=== PATIENT | male | born 1965 | race African-American/Black ===

== ENCOUNTER 2016-09-23 11:49 | Emergency (ER) | payer BC ==
[~2016-09-23] VITALS: Ht 175.3 cm; Wt 115.9 kg
[~2016-09-23 11:49] MED LIST: 00186-0370-20 IH; AMOXICILLIN 50500 MG PO; ANXIETY MED; APRESOLINE 25MG25 MG PO; ATARAX 25MG25 MG/TAB PO; BACTRIM DS 8001 TAB PO; BLOOD PRESSURE PILL; BP MED; BP med; BUSPAR5 MG; CELEXA10 MG PO; CEPHALEXIN500 M1 PO; CIPRO 250MG TA250 MG PO; CLEOCIN HCL300 MG PO; COMBIRESP IH; DESYREL 50MG50 MG PO; DOXYCYCLINE 10100 MG PO; EPI EZ PEN1 MG/ML IM; FLEXERIL 1010 MG/TAB PO; FLOMAX 0.40.4 MG/CAP PO; HCTZ 25MG TAB25 MG PO; HCTZ 25MG25 MG PO; KENALOG0.51 TP; LAMISIL AT1% TP; LAMISIL1% TP; LEVAQUIN 5500 MG/TA1 PO; LORTAB 5/500 501 TAB PO; LOTRISONE CREAM15 GM TP; MEDROL 4MG DOSPA4 MG PO; MOTRIN 800800 MG/TAB PO; NAPROSYN500 MG PO; NO HOME MEDICATIONS; NORCO 325 MG-51 TAB PO; NORCO 325 MG-7.1 TAB PO; PEN-VEE K500 MG PO; PENICILLIN VK250 MG PO; PENICILLIN250 MG PO; PERCOCET 325 MG1 TA2 PO; PHENERGAN W/CO120 M1 PO; PHENERGAN W/CO120 ML PO; PREDNISONE10 MG PO; PREDNISONE20 MG PO; PROAIR HFA0.09 MG/AC IH; PROVENTIL0.09 MG/A1 IH; PYRIDIUM200 M1 PO; SEPTRA DS 8001 TAB PO; SOME BP MED; TESSALON PERLE200 MG PO; TRIAMCINOLONE A15 G1 TP; TRIAMCINOLONE0.1% TOP; TRIAMCINOLONE0.1% TP; TRIAMCINOLONE0.5% TOP; TUSS PO; ULTRAM 50MG TAB50 MG PO; ULTRAM50 MG PO; UNKNOWN BP MED; VENTOLIN0.09 MG IH; VICODIN 5/5001 UDTAB PO; ZITHROMAX 250M250 MG PO; ZITHROMAX Z PA250 MG PO; ZITHROMAX250 M1 PO; ZOFRAN 4MG T4 MG/TAB PO; ZOVIRAX800 MG PO; [UNRECOGNIZED DRUG - REMARK]
[2016-09-23 11:56] VITALS: BP 140/80; PULSE 93; TEMP 98.8
[2016-09-23] MEDS ORDERED: NORCO 325 MG-51 TAB PO (12:32)
[2016-09-23] MEDS ORDERED: FLEXERIL 1010 MG/TAB PO (12:32)
== END 2016-09-23 12:39 | disposition home or self-care (01) ==
LOC: COL.ER 11:49
DX: M62.838 Other muscle spasm (principal); R10.12 Left upper quadrant pain; X50.0XXA Overexertion from strenuous movement or load, initial encounter; I10 Essential (primary) hypertension; F17.210 Nicotine dependence, cigarettes, uncomplicated

== ENCOUNTER 2016-10-23 09:23 | Emergency (ER) | payer BC ==
[~2016-10-23] VITALS: Ht 175.3 cm; Wt 118.2 kg
[2016-10-23 10:25] LABS: INFLUENZA B NEGATIVE
[2016-10-23] MEDS ORDERED: LEVAQUIN 750MG750 M1 PO (12:58)
[2016-10-23] MEDS ORDERED: NORCO 325 MG-51 TAB PO (12:58)
[2016-10-23 13:31] VITALS: BP 137/97; PULSE 80; TEMP 97.5
== END 2016-10-23 13:35 | disposition home or self-care (01) ==
LOC: COL.ER 09:23
PROVIDERS: Emergency Medicine
DX: J44.0 Chronic obstructive pulmonary disease with (acute) lower respiratory infection (principal); J20.9 Acute bronchitis, unspecified; J44.1 Chronic obstructive pulmonary disease with (acute) exacerbation
CPT/HCPCS: J1170; J1885; J7512; J8540

== ENCOUNTER 2016-10-25 16:10 | Emergency (ER) | payer BC ==
[~2016-10-25] VITALS: Ht 175.3 cm; Wt 113.6 kg
[~2016-10-25 16:10] MED LIST changes: +LEVAQUIN 750MG750 M1 PO
[2016-10-25 16:18] VITALS: TEMP 98.5
[2016-10-25 17:19] LABS: BASO % 0.4 % (0.0-2.0); EOS % 0.6 % (0-4.0); GRAN # 2.5 (1.4-6.5); HEMATOCRIT 40.3 % (42.0-52.0); HEMOGLOBIN 12.6 g/dl (13.5-18.0); LYMPH # 1.5 (1.2-3.4); LYMPH % 31.5 % (20.0-51.0); MEAN CELL VOLUME 87 fl (80.0-100.0); MEAN CORPUSCULAR HEMOGLOBIN 27 pg (27.0-31.0); MEAN CORPUSCULAR HGB CONC 31 g/dl (33.0-37.0); MEAN PLATELET VOLUME 10.4 fl (7.4-10.4); MONO # 0.6 (0.1-0.6); MONO % 13.3 % (1.7-9.3); PLATELET COUNT 301 K/mm3 (130-400); RED BLOOD COUNT 4.61 M/mm3 (4.20-5.60); REDCELL DISTRIBUTION WIDTH-CV 14.1 % (11.5-14.5); WHITE BLOOD COUNT 4.7 K/mm3 (4.8-10.8)
[2016-10-25 17:27] LABS: ADJUSTED CALCIUM 8.7 mg/dL (8.4-10.2); ALBUMIN 3.8 gm/dL (3.5-5.0); BILIRUBIN,TOTAL 0.5 mg/dL (0.0-1.0); CALCIUM 8.5 mg/dL (8.4-10.2); CREATININE, serum 0.92 mg/dL (0.66-1.25); POTASSIUM 3.6 mmol/L (3.4-5.0); TOTAL PROTEIN 7.1 gm/dL (6.4-8.2)
[2016-10-25 17:46] LABS: INFLUENZA B NEGATIVE
[2016-10-25] MEDS ORDERED: PREDNISONE20 MG PO (18:03)
[2016-10-25] MEDS ORDERED: NORCO 325 MG-51 TAB PO (18:03)
[2016-10-25] MEDS ORDERED: LEVAQUIN 750MG750 M1 PO (18:03)
[2016-10-25 18:06] VITALS: BP 121/81; PULSE 90
== END 2016-10-25 18:18 | disposition home or self-care (01) ==
LOC: COL.ER 16:10
PROVIDERS: Family Medicine
DX: J44.0 Chronic obstructive pulmonary disease with (acute) lower respiratory infection (principal); J20.9 Acute bronchitis, unspecified; Z87.891 Personal history of nicotine dependence
CPT/HCPCS: J1100

== ENCOUNTER 2016-12-27 15:44 | Emergency (ER) | payer BC ==
[~2016-12-27] VITALS: Ht 175.3 cm; Wt 113.6 kg
[2016-12-27 15:48] VITALS: PULSE 94; TEMP 98
[2016-12-27] MEDS ORDERED: MEDROL 4MG DOSPA4 MG PO (17:25)
[2016-12-27] MEDS ORDERED: LEVAQUIN 750MG750 M1 PO (17:25)
[2016-12-27 17:46] VITALS: BP 135/86
== END 2016-12-27 18:20 | disposition home or self-care (01) ==
LOC: COL.ER 15:44
DX: J44.1 Chronic obstructive pulmonary disease with (acute) exacerbation (principal); F17.210 Nicotine dependence, cigarettes, uncomplicated; R91.8 Other nonspecific abnormal finding of lung field
CPT/HCPCS: J1885; J7512

== ENCOUNTER 2017-02-06 22:36 | Emergency (ER) | payer BC ==
[~2017-02-06] VITALS: Ht 175.3 cm; Wt 118.2 kg
[2017-02-06 22:43] VITALS: BP 138/75; TEMP 99
[2017-02-06] MEDS ORDERED: TRIAMCINOLONE AC0.13 TOP (23:11)
[2017-02-06 23:28] VITALS: PULSE 98
== END 2017-02-06 23:30 | disposition home or self-care (01) ==
LOC: COL.ER 22:36
DX: R21 Rash and other nonspecific skin eruption (principal); I10 Essential (primary) hypertension; J44.9 Chronic obstructive pulmonary disease, unspecified; F17.210 Nicotine dependence, cigarettes, uncomplicated; Z98.890 Other specified postprocedural states

== ENCOUNTER 2017-02-13 07:27 | Inpatient (IN) | payer BC ==
[~2017-02-13] VITALS: Ht 175.3 cm; Wt 114.8 kg
[~2017-02-13 07:27] MED LIST changes: +TRIAMCINOLONE AC0.13 TOP
[2017-02-13 08:35] LABS: BASO % 0.6 % (0.0-2.0); EOS # 0.2 (0.0-0.7); GRAN # 3.8 (1.4-6.5); GRAN % 58.9 % (42.2-75.2); HEMATOCRIT 41.5 % (42.0-52.0); HEMOGLOBIN 13.2 g/dl (13.5-18.0); LYMPH # 1.8 (1.2-3.4); LYMPH % 27.9 % (20.0-51.0); MEAN CELL VOLUME 86 fl (80.0-100.0); MEAN CORPUSCULAR HEMOGLOBIN 27 pg (27.0-31.0); MEAN CORPUSCULAR HGB CONC 32 g/dl (33.0-37.0); MEAN PLATELET VOLUME 9.6 fl (7.4-10.4); MONO # 0.6 (0.1-0.6); MONO % 9.4 % (1.7-9.3); PLATELET COUNT 305 K/mm3 (130-400); RED BLOOD COUNT 4.81 M/mm3 (4.20-5.60); REDCELL DISTRIBUTION WIDTH-CV 14.2 % (11.5-14.5); WHITE BLOOD COUNT 6.4 K/mm3 (4.8-10.8)
[2017-02-13 08:38] LABS: INR 1.1 (0.8-3.0); PROTHROMBIN TIME 12.1 SECONDS (9.7-12.8)
[2017-02-13 08:57] LABS: ADJUSTED CALCIUM 8.6 mg/dL (8.4-10.2); ALBUMIN 3.8 gm/dL (3.5-5.0); BILIRUBIN,TOTAL 0.7 mg/dL (0.0-1.0); CALCIUM 8.4 mg/dL (8.4-10.2); CREATININE, serum 0.94 mg/dL (0.66-1.25); POTASSIUM 3.6 mmol/L (3.4-5.0); TOTAL PROTEIN 6.8 gm/dL (6.4-8.2)
[2017-02-13 09:08] LABS: TROPONIN-I 0.029 ng/mL (0.000-0.034)
[2017-02-13 10:48] VITALS: BP 125/90; PULSE 94; TEMP 98.2
[2017-02-13 10:49] VITALS: BP 125/90; PULSE 94; TEMP 98.2
[2017-02-13 15:06] VITALS: BP 129/84; PULSE 97; TEMP 98.2
[2017-02-13 19:44] VITALS: BP 125/83; PULSE 85; TEMP 98.9
[2017-02-13 23:30] VITALS: BP 156/90; PULSE 88; TEMP 97.5
[2017-02-14 05:38] VITALS: BP 129/88; PULSE 90; TEMP 98.3
[2017-02-14 07:20] LABS: CALCIUM 8.3 mg/dL (8.4-10.2); CREATININE, serum 1.01 mg/dL (0.66-1.25); POTASSIUM 3.6 mmol/L (3.4-5.0)
[2017-02-14 08:18] VITALS: BP 117/81; PULSE 102; TEMP 98.6
[2017-02-14 12:13] VITALS: BP 127/83; PULSE 81; TEMP 98
[2017-02-14 17:02] VITALS: BP 116/79; PULSE 86; TEMP 99.3
[2017-02-14 20:01] VITALS: BP 113/74; PULSE 95; TEMP 98.3
[2017-02-15] VITALS (15 sets, daily range): BP systolic 106–118; BP diastolic 63–85; PULSE 67–108; TEMP 87.7–98.3
[2017-02-15 07:59] LABS: HEMATOCRIT 41.1 % (42.0-52.0); HEMOGLOBIN 13.2 g/dl (13.5-18.0); MEAN CELL VOLUME 86 fl (80.0-100.0); MEAN CORPUSCULAR HEMOGLOBIN 28 pg (27.0-31.0); MEAN CORPUSCULAR HGB CONC 32 g/dl (33.0-37.0); PLATELET COUNT 322 K/mm3 (130-400); RED BLOOD COUNT 4.78 M/mm3 (4.20-5.60); REDCELL DISTRIBUTION WIDTH-CV 14.2 % (11.5-14.5); WHITE BLOOD COUNT 4.9 K/mm3 (4.8-10.8)
[2017-02-15 08:04] LABS: INR 1.1 (0.8-3.0); PROTHROMBIN TIME 11.9 SECONDS (9.7-12.8)
[2017-02-15 08:07] LABS: PARTIAL THROMBOPLASTIN TIME 31.4 SECONDS (26.0-37.0)
[2017-02-15 08:19] LABS: CALCIUM 8.4 mg/dL (8.4-10.2); CREATININE, serum 1.06 mg/dL (0.66-1.25); POTASSIUM 4.1 mmol/L (3.4-5.0)
[2017-02-15] MEDS ORDERED: PRINIVIL5 MG PO (12:17)
[2017-02-15] MEDS ORDERED: COREG12.5 MG PO (12:17)
[2017-02-15] MEDS ORDERED: ASPIRIN 81M81 MG/TA2 PO (12:18)
[2017-02-15] MEDS ORDERED: LASIX 40MG TABL40 MG PO (12:18)
== END 2017-02-15 18:15 | disposition home or self-care (01) | DRG 287 ==
LOC: COL.ER 07:27 → MEDICAL 09:30
PROVIDERS: Family Medicine; Internal Medicine Cardiovascular Disease; Physician Assistant
PROC: B2111ZZ Fluoroscopy of Multiple Coronary Arteries using Low Osmolar Contrast (ICD-10-PCS; principal; 2017-02-15)
DX: I11.0 Hypertensive heart disease with heart failure (principal); I50.21 Acute systolic (congestive) heart failure; I42.9 Cardiomyopathy, unspecified; J45.909 Unspecified asthma, uncomplicated; F17.210 Nicotine dependence, cigarettes, uncomplicated
CPT/HCPCS: 99222-AI; 99232-AI; 99239; C1760; J1650; J1940; J2250; J3010; J7512; Q9967

== ENCOUNTER 2017-02-24 08:28 | Emergency (ER) | payer BC ==
[~2017-02-24] VITALS: Ht 175.3 cm; Wt 113.6 kg
[~2017-02-24 08:28] MED LIST changes: +ASPIRIN 81M81 MG/TA2 PO; +COREG12.5 MG PO; +LASIX 40MG TABL40 MG PO; +PRINIVIL5 MG PO
[2017-02-24 08:30] VITALS: TEMP 98.1
[2017-02-24 09:08] LABS: BASO % 0.6 % (0.0-2.0); EOS # 0.2 (0.0-0.7); EOS % 3.1 % (0-4.0); GRAN # 2.7 (1.4-6.5); GRAN % 55.9 % (42.2-75.2); HEMATOCRIT 42.9 % (42.0-52.0); HEMOGLOBIN 13.7 g/dl (13.5-18.0); LYMPH # 1.3 (1.2-3.4); LYMPH % 27.2 % (20.0-51.0); MEAN CELL VOLUME 86 fl (80.0-100.0); MEAN CORPUSCULAR HEMOGLOBIN 27 pg (27.0-31.0); MEAN CORPUSCULAR HGB CONC 32 g/dl (33.0-37.0); MEAN PLATELET VOLUME 9.8 fl (7.4-10.4); MONO # 0.6 (0.1-0.6); PLATELET COUNT 322 K/mm3 (130-400); REDCELL DISTRIBUTION WIDTH-CV 14.1 % (11.5-14.5); WHITE BLOOD COUNT 4.9 K/mm3 (4.8-10.8)
[2017-02-24 09:22] LABS: ADJUSTED CALCIUM 8.6 mg/dL (8.4-10.2); BILIRUBIN,TOTAL 0.8 mg/dL (0.0-1.0); C-REACTIVE PROTEIN 1.1 mg/dL (0.0-0.9); CALCIUM 8.6 mg/dL (8.4-10.2); CREATININE, serum 1.06 mg/dL (0.66-1.25); POTASSIUM 3.5 mmol/L (3.4-5.0)
[2017-02-24 09:30] LABS: TROPONIN-I 0.021 ng/mL (0.000-0.034)
[2017-02-24 10:40] LABS: PH 6 (5-8); SQUAMOUS EPITHELIAL 0-2 /hpf; URINE APPEARANCE Clear; URINE BACTERIA None Seen /hpf; URINE BILIRUBIN Negative (NEGATIVE); URINE BLOOD 1+ (NEGATIVE); URINE COLOR Straw; URINE GLUCOSE Negative (NEGATIVE); URINE KETONE Negative (NEGATIVE); URINE RBC 0-2 /hpf; URINE UROBILINOGEN Negative (NEGATIVE); URINE WBC 0-2 /hpf
[2017-02-24 11:06] VITALS: BP 112/82; PULSE 75
== END 2017-02-24 11:12 | disposition home or self-care (01) ==
LOC: COL.ER 08:28
PROVIDERS: Physician Assistant
DX: I11.0 Hypertensive heart disease with heart failure (principal); I50.9 Heart failure, unspecified; R07.9 Chest pain, unspecified; J45.909 Unspecified asthma, uncomplicated; J44.9 Chronic obstructive pulmonary disease, unspecified; Z86.14 Personal history of Methicillin resistant Staphylococcus aureus infection; I42.9 Cardiomyopathy, unspecified; F17.210 Nicotine dependence, cigarettes, uncomplicated
CPT/HCPCS: J1940

== ENCOUNTER 2017-03-05 09:12 | Emergency (ER) | payer BC ==
[~2017-03-05] VITALS: Ht 175.3 cm; Wt 113.6 kg
[2017-03-05 09:14] VITALS: TEMP 98.2
[2017-03-05] MEDS ORDERED: LASIX 40MG TABL40 MG PO (09:24)
[2017-03-05] MEDS ORDERED: COREG12.5 MG PO (09:25)
[2017-03-05] MEDS ORDERED: PRINIVIL5 MG PO (09:26)
[2017-03-05] MEDS ORDERED: LASIX 80MG TABL80 MG PO (09:27)
[2017-03-05 10:04] LABS: CALCIUM 8.6 mg/dL (8.4-10.2); CREATININE, serum 1.07 mg/dL (0.66-1.25); POTASSIUM 4.1 mmol/L (3.4-5.0)
[2017-03-05 10:16] VITALS: BP 129/89; PULSE 81
[2017-03-05 10:16] LABS: TROPONIN-I 0.016 ng/mL (0.000-0.034)
== END 2017-03-05 10:35 | disposition home or self-care (01) ==
LOC: COL.ER 09:12
PROVIDERS: Emergency Medicine
DX: I11.0 Hypertensive heart disease with heart failure (principal); I50.20 Unspecified systolic (congestive) heart failure; F17.210 Nicotine dependence, cigarettes, uncomplicated; T50.1X6A Underdosing of loop [high-ceiling] diuretics, initial encounter; Z91.138 Patient's unintentional underdosing of medication regimen for other reason
CPT/HCPCS: J1940

== ENCOUNTER 2017-03-12 09:35 | Emergency (ER) | payer BC ==
[~2017-03-12] VITALS: Ht 175.3 cm; Wt 116.8 kg
[~2017-03-12 09:35] MED LIST changes: +LASIX 80MG TABL80 MG PO
[2017-03-12 09:37] VITALS: BP 123/80; PULSE 91; TEMP 98.1
[2017-03-12] MEDS ORDERED: LASIX 40MG TABL40 MG PO (10:18)
[2017-03-12] MEDS ORDERED: VENTOLIN0.09 MG IH (10:18)
== END 2017-03-12 10:30 | disposition home or self-care (01) ==
LOC: COL.ER 09:35
DX: I50.9 Heart failure, unspecified (principal); T50.1X5A Adverse effect of loop [high-ceiling] diuretics, initial encounter; J44.9 Chronic obstructive pulmonary disease, unspecified; Z95.810 Presence of automatic (implantable) cardiac defibrillator

== ENCOUNTER 2017-04-10 06:43 | Inpatient (IN) | payer BC ==
[~2017-04-10] VITALS: Ht 175.3 cm; Wt 112.7 kg
[2017-04-10] VITALS (806 sets, daily range): BP systolic 131–146; BP diastolic 84–102; PULSE 78–93; TEMP 97.1–98.7; O2SAT 89–100
[2017-04-10] MEDS ORDERED: LIPOSENE PO (06:46)
[2017-04-10 07:08] LABS: BASO % 0.5 % (0.0-2.0); EOS # 0.2 (0.0-0.7); EOS % 4.6 % (0-4.0); GRAN # 2.2 (1.4-6.5); GRAN % 53.2 % (42.2-75.2); HEMATOCRIT 41.7 % (42.0-52.0); HEMOGLOBIN 13.4 g/dl (13.5-18.0); LYMPH # 1.3 (1.2-3.4); LYMPH % 31.9 % (20.0-51.0); MEAN CELL VOLUME 86 fl (80.0-100.0); MEAN CORPUSCULAR HEMOGLOBIN 28 pg (27.0-31.0); MEAN CORPUSCULAR HGB CONC 32 g/dl (33.0-37.0); MEAN PLATELET VOLUME 10.8 fl (7.4-10.4); MONO # 0.4 (0.1-0.6); MONO % 9.6 % (1.7-9.3); PLATELET COUNT 276 K/mm3 (130-400); RED BLOOD COUNT 4.85 M/mm3 (4.20-5.60); REDCELL DISTRIBUTION WIDTH-CV 14.3 % (11.5-14.5); WHITE BLOOD COUNT 4.2 K/mm3 (4.8-10.8)
[2017-04-10 07:26] LABS: ARTERIAL BLD GAS O2 SATURATION 74.1 % (92-100); ARTERIAL BLOOD GAS BASE EXCESS 2.5 (-2-2); ARTERIAL BLOOD GAS HCO3 28.5 meq/L (22-26); ARTERIAL BLOOD GAS PHT 7.38 C (7.35-7.45); ARTERIAL BLOOD GAS pH 7.38 (7.35-7.45); OXYHEMOGLOBIN 72.8 %
[2017-04-10 07:28] LABS: ARTERIAL BLOOD GAS PO2 36.2 mmHg (80-100); ARTERIAL BLOOD GAS PO2T 36.2 (80-100); ATS? YES
[2017-04-10 07:43] LABS: ADJUSTED CALCIUM 8.5 mg/dL (8.4-10.2); ALBUMIN 3.8 gm/dL (3.5-5.0); BILIRUBIN,TOTAL 0.6 mg/dL (0.0-1.0); CALCIUM 8.3 mg/dL (8.4-10.2); CREATININE, serum 1.03 mg/dL (0.66-1.25); POTASSIUM 3.6 mmol/L (3.4-5.0); TOTAL PROTEIN 6.7 gm/dL (6.4-8.2)
[2017-04-10 07:52] LABS: PARTIAL THROMBOPLASTIN TIME 29.3 SECONDS (26.0-37.0)
[2017-04-10 07:56] LABS: PROTHROMBIN TIME 10.8 SECONDS (9.7-12.8)
[2017-04-10 07:57] LABS: TROPONIN-I 0.225 ng/mL (0.000-0.034)
[2017-04-10 12:17] LABS: ARTERIAL BLD GAS O2 SATURATION 96.6 % (92-100); ARTERIAL BLD GAS TCO2 CT 28.9; ARTERIAL BLOOD GAS BASE EXCESS 2.7 (-2-2); ARTERIAL BLOOD GAS HCO3 27.6 meq/L (22-26); ARTERIAL BLOOD GAS PHT 7.42 C (7.35-7.45); ARTERIAL BLOOD GAS PO2 83.8 mmHg (80-100); ARTERIAL BLOOD GAS PO2T 83.8 (80-100); ARTERIAL BLOOD GAS pH 7.42 (7.35-7.45); OXYHEMOGLOBIN 95.5 %
[2017-04-10 12:18] LABS: ATS? YES
[2017-04-10 12:48] LABS: PH 6 (5-8); SQUAMOUS EPITHELIAL None Seen /hpf; URINE APPEARANCE Clear; URINE BACTERIA None Seen /hpf; URINE BILIRUBIN Negative (NEGATIVE); URINE BLOOD Negative (NEGATIVE); URINE COLOR Colorless; URINE GLUCOSE Negative (NEGATIVE); URINE KETONE Negative (NEGATIVE); URINE RBC 0-2 /hpf; URINE UROBILINOGEN Negative (NEGATIVE); URINE WBC 0-2 /hpf
[2017-04-11] VITALS (624 sets, daily range): BP systolic 125–158; BP diastolic 68–105; PULSE 73–86; TEMP 97.2–98.9; O2SAT 92–100
[2017-04-11 08:30] LABS: HEMOGLOBIN 14.1 g/dl (13.5-18.0); MEAN CELL VOLUME 86 fl (80.0-100.0); MEAN CORPUSCULAR HEMOGLOBIN 27 pg (27.0-31.0); MEAN CORPUSCULAR HGB CONC 32 g/dl (33.0-37.0); MEAN PLATELET VOLUME 10.7 fl (7.4-10.4); PLATELET COUNT 309 K/mm3 (130-400); RED BLOOD COUNT 5.14 M/mm3 (4.20-5.60); REDCELL DISTRIBUTION WIDTH-CV 13.7 % (11.5-14.5); WHITE BLOOD COUNT 6.1 K/mm3 (4.8-10.8)
[2017-04-11 09:39] LABS: ADJUSTED CALCIUM 8.8 mg/dL (8.4-10.2); ALBUMIN 3.7 gm/dL (3.5-5.0); BILIRUBIN,TOTAL 0.8 mg/dL (0.0-1.0); CALCIUM 8.6 mg/dL (8.4-10.2); CREATININE, serum 1.07 mg/dL (0.66-1.25); POTASSIUM 3.5 mmol/L (3.4-5.0); TOTAL PROTEIN 6.9 gm/dL (6.4-8.2)
[2017-04-12 01:22] VITALS: BP 127/89; PULSE 81; TEMP 98.8
[2017-04-12 05:35] VITALS: BP 124/85; PULSE 71; TEMP 98.5
[2017-04-12 07:09] LABS: CALCIUM 8.8 mg/dL (8.4-10.2); CREATININE, serum 1.14 mg/dL (0.66-1.25); MAGNESIUM 2.1 mg/dL (1.6-2.3); POTASSIUM 3.4 mmol/L (3.4-5.0)
[2017-04-12 07:20] LABS: TROPONIN-I 0.371 ng/mL (0.000-0.034)
[2017-04-12 08:31] VITALS: BP 121/80; PULSE 88; TEMP 98
[2017-04-12 11:19] VITALS: BP 130/87; PULSE 66; TEMP 98.4
[2017-04-12 16:07] VITALS: BP 143/89; PULSE 75; TEMP 98.5
[2017-04-12 21:14] VITALS: BP 144/85; PULSE 77; TEMP 98.6
[2017-04-13 00:47] VITALS: BP 122/68; PULSE 80; TEMP 98.2
[2017-04-13 04:51] VITALS: BP 126/62; PULSE 93; TEMP 98.1
[2017-04-13 06:55] LABS: CREATININE, serum 1.16 mg/dL (0.66-1.25); MAGNESIUM 2.2 mg/dL (1.6-2.3); POTASSIUM 3.6 mmol/L (3.4-5.0)
[2017-04-13 07:44] VITALS: BP 131/81; PULSE 80; TEMP 98.3
[2017-04-13] MEDS ORDERED: LIPITOR 80MG80 MG PO (09:37)
[2017-04-13] MEDS ORDERED: PLAVIX 75MG TAB75 MG PO (09:37)
[2017-04-13] MEDS ORDERED: ALDACTONE50 MG PO (09:38)
[2017-04-13] MEDS ORDERED: ASPI325T6 PO (09:38)
[2017-04-13] MEDS ORDERED: ZESTRIL 10MG10 MG PO (09:38)
[2017-04-13] MEDS ORDERED: K-DUR20 MEQ PO (10:37)
== END 2017-04-13 16:30 | disposition home or self-care (01) | DRG 281 ==
LOC: COL.ER 06:43 → ICU 09:07 → MEDICAL 09:07
PROVIDERS: Emergency Medicine; Internal Medicine; Physician Assistant
DX: I50.21 Acute systolic (congestive) heart failure (principal); I21.4 Non-ST elevation (NSTEMI) myocardial infarction; I42.9 Cardiomyopathy, unspecified; F17.210 Nicotine dependence, cigarettes, uncomplicated; Z91.14 Patient's other noncompliance with medication regimen
CPT/HCPCS: 99223-AI; 99232-AI; 99239; J1940; J2270; J7030; Q9967

== ENCOUNTER 2017-04-15 22:28 | Emergency (ER) | payer BC ==
[~2017-04-15] VITALS: Ht 175.3 cm; Wt 115.9 kg
[~2017-04-15 22:28] MED LIST changes: +ALDACTONE50 MG PO; +ASPI325T6 PO; +K-DUR20 MEQ PO; +LIPITOR 80MG80 MG PO; +LIPOSENE PO; +PLAVIX 75MG TAB75 MG PO; +ZESTRIL 10MG10 MG PO
[2017-04-15 22:30] VITALS: BP 134/83; TEMP 98.5
[2017-04-15 23:24] VITALS: PULSE 79
== END 2017-04-15 23:26 | disposition home or self-care (01) ==
LOC: COL.ER 22:28
DX: T80.89XA Other complications following infusion, transfusion and therapeutic injection, initial encounter (principal); R10.32 Left lower quadrant pain; I10 Essential (primary) hypertension; E11.9 Type 2 diabetes mellitus without complications; J45.909 Unspecified asthma, uncomplicated; I42.8 Other cardiomyopathies; E66.9 Obesity, unspecified; Z68.37 Body mass index [BMI] 37.0-37.9, adult; Z79.82 Long term (current) use of aspirin; Z98.890 Other specified postprocedural states; Z79.02 Long term (current) use of antithrombotics/antiplatelets; Z87.891 Personal history of nicotine dependence

== ENCOUNTER 2017-06-16 08:34 | Day surgery (SDC) | payer BC ==
[2017-06-16] VITALS (13 sets, daily range): BP systolic 117–167; BP diastolic 54–104; PULSE 61–96; TEMP 97.7–98.6
[~2017-06-16] VITALS: Ht 175.4 cm; Wt 117.0 kg
[2017-06-16] MEDS ORDERED: ASPI325T6 PO (09:13)
[2017-06-16 09:14] LABS: HEMOGLOBIN 12.8 g/dl (13.5-18.0); MEAN CELL VOLUME 87 fl (80.0-100.0); MEAN CORPUSCULAR HEMOGLOBIN 29 pg (27.0-31.0); MEAN CORPUSCULAR HGB CONC 33 g/dl (33.0-37.0); MEAN PLATELET VOLUME 9.6 fl (7.4-10.4); PLATELET COUNT 283 K/mm3 (130-400); RED BLOOD COUNT 4.47 M/mm3 (4.20-5.60); REDCELL DISTRIBUTION WIDTH-CV 13.9 % (11.5-14.5); WHITE BLOOD COUNT 4.8 K/mm3 (4.8-10.8)
[2017-06-16] MEDS ORDERED: LIPITOR 80MG80 MG PO (09:15)
[2017-06-16 09:20] LABS: PROTHROMBIN TIME 10.5 SECONDS (9.7-12.8)
[2017-06-16] MEDS ORDERED: COZAAR 50MG50 MG/TAB PO (09:21)
[2017-06-16] MEDS ORDERED: ENTRESTO 49 MG1 EACH PO (09:22)
[2017-06-16] MEDS ORDERED: K-DUR 10 MEQ T10 MEQ PO (09:25)
[2017-06-16 09:28] LABS: CALCIUM 8.6 mg/dL (8.4-10.2); CREATININE, serum 0.99 mg/dL (0.66-1.25)
[2017-06-17 03:29] VITALS: BP 141/83; PULSE 68; TEMP 97.8
[2017-06-17 08:28] VITALS: BP 97/75; PULSE 73; TEMP 98
== END 2017-06-17 11:45 | disposition home or self-care (01) ==
LOC: COL.CAR 08:34 → MEDICAL 13:37 → COL.CAR 06-17 11:45
PROVIDERS: Internal Medicine Interventional Cardiology
DX: I51.9 Heart disease, unspecified (principal); I42.8 Other cardiomyopathies
CPT/HCPCS: OP; C1722; C1777; C1894; J0690; J2250; J3010; J7030

== ENCOUNTER → 2017-06-28 | Outpatient (CLI) | payer BC ==
[~2017-06-28] MED LIST changes: +COZAAR 50MG50 MG/TAB PO; +ENTRESTO 49 MG1 EACH PO; +K-DUR 10 MEQ T10 MEQ PO
[2017-06-28 17:12] LABS: ADJUSTED CALCIUM 8.9 mg/dL (8.4-10.2); ALBUMIN 4.1 gm/dL (3.5-5.0); BILIRUBIN,TOTAL 0.4 mg/dL (0.0-1.0); CREATININE, serum 1.1 mg/dL (0.66-1.25); POTASSIUM 3.8 mmol/L (3.4-5.0); TOTAL PROTEIN 7.2 gm/dL (6.4-8.2)
== END ==
LOC: COL.LAB 16:02
PROVIDERS: Family Medicine
DX: E66.9 Obesity, unspecified (principal); I50.9 Heart failure, unspecified

== ENCOUNTER → 2017-07-11 | Outpatient (CLI) | payer BC | LOC: COL.RAD 13:11 | DX: R07.89 Other chest pain (principal); Z95.0 Presence of cardiac pacemaker ==

== ENCOUNTER 2017-07-31 19:31 | Emergency (ER) | payer BC ==
[~2017-07-31] VITALS: Ht 175.3 cm; Wt 112.3 kg
[2017-07-31 19:33] VITALS: TEMP 98.1
[2017-07-31] MEDS ORDERED: LASIX 40MG TABL40 MG PO (20:16)
[2017-07-31 20:32] LABS: BASO % 0.4 % (0.0-2.0); EOS # 0.5 (0.0-0.7); EOS % 5.6 % (0-4.0); GRAN # 5.7 (1.4-6.5); GRAN % 61.1 % (42.2-75.2); HEMATOCRIT 37.3 % (42.0-52.0); LYMPH % 21.1 % (20.0-51.0); MEAN CELL VOLUME 88 fl (80.0-100.0); MEAN CORPUSCULAR HEMOGLOBIN 28 pg (27.0-31.0); MEAN CORPUSCULAR HGB CONC 32 g/dl (33.0-37.0); MEAN PLATELET VOLUME 9.6 fl (7.4-10.4); MONO # 1.1 (0.1-0.6); MONO % 11.5 % (1.7-9.3); PLATELET COUNT 298 K/mm3 (130-400); RED BLOOD COUNT 4.25 M/mm3 (4.20-5.60); WHITE BLOOD COUNT 9.4 K/mm3 (4.8-10.8)
[2017-07-31 20:33] LABS: HEMOGLOBIN 11.9 g/dl (13.5-18.0)
[2017-07-31 20:42] LABS: ANION GAP 10 mmol/L (7-16); BLOOD UREA NITROGEN 18 mg/dL (9-20); CALCIUM 8.8 mg/dL (8.4-10.2); CARBON DIOXIDE 29 mmol/L (22-30); CHLORIDE 103 mmol/L (98-107); CREATININE, serum 1.07 mg/dL (0.66-1.25); GLUCOSE 103 mg/dL (74-106); POTASSIUM 3.3 mmol/L (3.4-5.0); SODIUM 141 mmol/L (137-145)
[2017-07-31 20:54] LABS: B-TYPE NATRIURETIC PEPTIDE 735 pg/mL (0-125)
[2017-07-31 20:55] LABS: TROPONIN-I < 0.012 ng/mL (0.000-0.034)
[2017-07-31 21:23] VITALS: BP 155/87; PULSE 78
== END 2017-07-31 21:45 | disposition home or self-care (01) ==
LOC: COL.ER 19:31
PROVIDERS: Physician Assistant
DX: R06.02 Shortness of breath (principal); I10 Essential (primary) hypertension; M79.601 Pain in right arm; J44.9 Chronic obstructive pulmonary disease, unspecified; I42.9 Cardiomyopathy, unspecified; E66.9 Obesity, unspecified; Z68.36 Body mass index [BMI] 36.0-36.9, adult; Z79.82 Long term (current) use of aspirin
CPT/HCPCS: J2360

== ENCOUNTER 2017-08-11 07:02 | Day surgery (SDC) | payer BC ==
[~2017-08-11] VITALS: Ht 175.3 cm; Wt 120.0 kg
[2017-08-11] VITALS (9 sets, daily range): BP systolic 108–152; BP diastolic 62–93; PULSE 70–88; TEMP 97–98.5
[2017-08-11 07:43] LABS: PROTHROMBIN TIME 12.1 SECONDS (9.7-12.8)
[2017-08-11 07:46] LABS: HEMATOCRIT 41.3 % (42.0-52.0); HEMOGLOBIN 13.2 g/dl (13.5-18.0); MEAN CELL VOLUME 88 fl (80.0-100.0); MEAN CORPUSCULAR HEMOGLOBIN 28 pg (27.0-31.0); MEAN CORPUSCULAR HGB CONC 32 g/dl (33.0-37.0); MEAN PLATELET VOLUME 9.6 fl (7.4-10.4); PLATELET COUNT 315 K/mm3 (130-400); RED BLOOD COUNT 4.69 M/mm3 (4.20-5.60); WHITE BLOOD COUNT 5.4 K/mm3 (4.8-10.8)
[2017-08-11 07:50] LABS: CALCIUM 9.1 mg/dL (8.4-10.2); CREATININE, serum 0.99 mg/dL (0.66-1.25); POTASSIUM 4.1 mmol/L (3.4-5.0)
[2017-08-12 03:15] VITALS: BP 148/79; PULSE 87; TEMP 98.2
[2017-08-12 09:35] VITALS: BP 102/80; PULSE 72; TEMP 98.8
== END 2017-08-12 13:10 | disposition home or self-care (01) ==
LOC: COL.CAR 07:02 → SURG 11:15 → COL.CAR 08-12 13:10
PROVIDERS: Internal Medicine Interventional Cardiology
DX: R00.1 Bradycardia, unspecified (principal); I47.2 Ventricular tachycardia; I42.9 Cardiomyopathy, unspecified
CPT/HCPCS: OP; C1769; C1894; J0690; J2250; J3010; J7030

== ENCOUNTER 2017-08-14 11:01 | Emergency (ER) | payer BC ==
[~2017-08-14] VITALS: Ht 175.3 cm; Wt 113.6 kg
[2017-08-14 11:04] VITALS: BP 125/74; TEMP 98.3
[2017-08-14] MEDS ORDERED: NORCO 325 MG-51 TAB PO (11:40)
[2017-08-14 12:16] VITALS: PULSE 80
== END 2017-08-14 12:17 | disposition home or self-care (01) ==
LOC: COL.ER 11:01
DX: G89.18 Other acute postprocedural pain (principal); R07.89 Other chest pain; I10 Essential (primary) hypertension; I42.9 Cardiomyopathy, unspecified; J44.9 Chronic obstructive pulmonary disease, unspecified; Z87.891 Personal history of nicotine dependence; Z79.82 Long term (current) use of aspirin; Z95.0 Presence of cardiac pacemaker

== ENCOUNTER → 2017-08-22 | Outpatient (CLI) | payer BC ==
[2017-08-22 16:45] LABS: CALCIUM 8.5 mg/dL (8.4-10.2); CREATININE, serum 1.02 mg/dL (0.66-1.25); POTASSIUM 3.8 mmol/L (3.4-5.0)
== END ==
LOC: COL.LAB 14:01
PROVIDERS: Family Medicine
DX: I50.9 Heart failure, unspecified (principal)

== ENCOUNTER 2017-11-17 10:23 | Emergency (ER) | payer SELFPAY ==
[~2017-11-17] VITALS: Ht 175.3 cm; Wt 118.2 kg
[2017-11-17 10:26] VITALS: BP 154/86; TEMP 98.2
[2017-11-17] MEDS ORDERED: ZITHROMAX Z PA250 MG PO (11:40)
[2017-11-17] MEDS ORDERED: PREDNISONE20 MG PO (11:40)
[2017-11-17] MEDS ORDERED: PROAIR HFA0.09 MG/AC IH (11:43)
[2017-11-17 12:23] VITALS: PULSE 86
== END 2017-11-17 12:24 | disposition home or self-care (01) ==
LOC: COL.ER 10:23
DX: J44.1 Chronic obstructive pulmonary disease with (acute) exacerbation (principal); I10 Essential (primary) hypertension; I42.9 Cardiomyopathy, unspecified; E78.5 Hyperlipidemia, unspecified; F17.210 Nicotine dependence, cigarettes, uncomplicated; Z79.82 Long term (current) use of aspirin
CPT/HCPCS: J7512

== ENCOUNTER 2017-11-19 00:28 | Emergency (ER) | payer SELFPAY ==
[~2017-11-19] VITALS: Ht 175.3 cm; Wt 117.7 kg
[2017-11-19 00:29] VITALS: BP 143/77; TEMP 98.8
[2017-11-19 03:20] VITALS: PULSE 77
== END 2017-11-19 03:21 | disposition home or self-care (01) ==
LOC: COL.ER 00:28
DX: J20.9 Acute bronchitis, unspecified (principal); I50.9 Heart failure, unspecified; I25.10 Atherosclerotic heart disease of native coronary artery without angina pectoris; J44.9 Chronic obstructive pulmonary disease, unspecified; Z95.810 Presence of automatic (implantable) cardiac defibrillator; Z79.82 Long term (current) use of aspirin; Z79.52 Long term (current) use of systemic steroids
CPT/HCPCS: J8540

== ENCOUNTER 2017-11-28 23:38 | Emergency (ER) | payer SELFPAY ==
[~2017-11-28] VITALS: Ht 175.3 cm; Wt 113.6 kg
[2017-11-28 23:42] VITALS: TEMP 98.6
[2017-11-29] MEDS ORDERED: PEN-VEE K500 MG PO (00:17)
[2017-11-29 00:25] VITALS: BP 147/89; PULSE 78
== END 2017-11-29 00:26 | disposition home or self-care (01) ==
LOC: COL.ER 23:38
DX: K02.9 Dental caries, unspecified (principal); F17.200 Nicotine dependence, unspecified, uncomplicated; Z79.82 Long term (current) use of aspirin; Z79.52 Long term (current) use of systemic steroids

== ENCOUNTER → 2017-11-29 | Outpatient (CLI) | payer OTHER | LOC: COL.PUL 09:58 | DX: Z02.71 Encounter for disability determination (principal) ==

== ENCOUNTER 2017-12-12 16:31 | Emergency (ER) | payer SELFPAY ==
[~2017-12-12] VITALS: Ht 175.3 cm; Wt 120.5 kg
[2017-12-12 16:45] VITALS: BP 146/83; TEMP 98.5
[2017-12-12 17:29] LABS: BASO % 0.6 % (0.0-2.0); EOS # 0.7 (0.0-0.7); EOS % 10.9 % (0-4.0); GRAN # 3.2 (1.4-6.5); GRAN % 46.5 % (42.2-75.2); HEMATOCRIT 42.4 % (42.0-52.0); HEMOGLOBIN 13.4 g/dl (13.5-18.0); LYMPH # 2.1 (1.2-3.4); LYMPH % 30.7 % (20.0-51.0); MEAN CELL VOLUME 87 fl (80.0-100.0); MEAN CORPUSCULAR HEMOGLOBIN 27 pg (27.0-31.0); MEAN CORPUSCULAR HGB CONC 32 g/dl (33.0-37.0); MEAN PLATELET VOLUME 9.2 fl (7.4-10.4); MONO # 0.8 (0.1-0.6); PLATELET COUNT 313 K/mm3 (130-400)
[2017-12-12 17:44] LABS: ALANINE AMINOTRANSFERASE 37 U/L (21-72); ALBUMIN 3.9 gm/dL (3.5-5.0); ALKALINE PHOSPHATASE 92 U/L (50-136); ANION GAP 11 mmol/L (7-16); AST,SGOT 26 U/L (15-37); BILIRUBIN,TOTAL 0.2 mg/dL (0.0-1.0); BLOOD UREA NITROGEN 16 mg/dL (9-20); C-REACTIVE PROTEIN 2.5 mg/dL (0.0-0.9); CALCIUM 8.9 mg/dL (8.4-10.2); CARBON DIOXIDE 29 mmol/L (22-30); CHLORIDE 101 mmol/L (98-107); CREATININE, serum 1.09 mg/dL (0.66-1.25); GLUCOSE 117 mg/dL (74-106); POTASSIUM 4.3 mmol/L (3.4-5.0); SODIUM 142 mmol/L (137-145)
[2017-12-12 17:57] LABS: TROPONIN-I < 0.012 ng/mL (0.000-0.034)
[2017-12-12] MEDS ORDERED: PREDNISONE20 MG PO (18:04)
[2017-12-12] MEDS ORDERED: ZITHROMAX 250M250 MG PO (18:04)
[2017-12-12 18:31] VITALS: PULSE 74
== END 2017-12-12 18:30 | disposition home or self-care (01) ==
LOC: COL.ER 16:31
PROVIDERS: Emergency Medicine
DX: J44.1 Chronic obstructive pulmonary disease with (acute) exacerbation (principal); J20.9 Acute bronchitis, unspecified; I10 Essential (primary) hypertension; I42.8 Other cardiomyopathies; E78.00 Pure hypercholesterolemia, unspecified; Z87.891 Personal history of nicotine dependence; Z79.52 Long term (current) use of systemic steroids; Z79.82 Long term (current) use of aspirin
CPT/HCPCS: J7512

== ENCOUNTER 2017-12-29 03:42 | Emergency (ER) | payer SELFPAY ==
[~2017-12-29] VITALS: Ht 175.3 cm; Wt 113.6 kg
[2017-12-29 03:47] VITALS: BP 193/112; TEMP 98.2
[2017-12-29] MEDS ORDERED: NORCO 325 MG-51 TAB PO (04:30)
[2017-12-29] MEDS ORDERED: PEN-VEE K500 MG PO (04:55)
[2017-12-29 05:15] VITALS: PULSE 95
== END 2017-12-29 05:15 | disposition home or self-care (01) ==
LOC: COL.ER 03:42
DX: K02.9 Dental caries, unspecified (principal); I11.0 Hypertensive heart disease with heart failure; I50.9 Heart failure, unspecified; E78.5 Hyperlipidemia, unspecified; J44.9 Chronic obstructive pulmonary disease, unspecified; Z95.0 Presence of cardiac pacemaker; Z87.891 Personal history of nicotine dependence

== ENCOUNTER → 2018-01-23 | Outpatient (CLI) | payer OTHER | LOC: COL.PUL 09:56 | DX: Z02.71 Encounter for disability determination (principal) ==

== ENCOUNTER 2018-02-17 18:07 | Emergency (ER) | payer SELFPAY ==
[~2018-02-17] VITALS: Ht 175.3 cm; Wt 115.9 kg
[2018-02-17 18:49] LABS: BASO % 0.6 % (0.0-2.0); EOS # 0.1 (0.0-0.7); EOS % 1.5 % (0-4.0); GRAN # 5.1 (1.4-6.5); GRAN % 69.8 % (42.2-75.2); LYMPH # 1.3 (1.2-3.4); LYMPH % 18.2 % (20.0-51.0); MEAN CELL VOLUME 88 fl (80.0-100.0); MEAN CORPUSCULAR HEMOGLOBIN 29 pg (27.0-31.0); MEAN CORPUSCULAR HGB CONC 33 g/dl (33.0-37.0); MEAN PLATELET VOLUME 9.4 fl (7.4-10.4); MONO # 0.7 (0.1-0.6); MONO % 9.5 % (1.7-9.3); PLATELET COUNT 327 K/mm3 (130-400); RED BLOOD COUNT 4.11 M/mm3 (4.20-5.60); REDCELL DISTRIBUTION WIDTH-CV 14.5 % (11.5-14.5)
[2018-02-17 18:59] LABS: ALANINE AMINOTRANSFERASE 40 U/L (21-72); ALBUMIN 3.9 gm/dL (3.5-5.0); ALCOHOL(ethanol),MEDICAL < 10 mg/dL; ALKALINE PHOSPHATASE 83 U/L (50-136); ANION GAP 15 mmol/L (7-16); AST,SGOT 47 U/L (15-37); BILIRUBIN,TOTAL 0.4 mg/dL (0.0-1.0); BLOOD UREA NITROGEN 20 mg/dL (9-20); CALCIUM 8.5 mg/dL (8.4-10.2); CARBON DIOXIDE 26 mmol/L (22-30); CHLORIDE 104 mmol/L (98-107); CREATININE, serum 1.22 mg/dL (0.66-1.25); GLUCOSE 102 mg/dL (74-106); LIPASE 57 U/L (23-300); POTASSIUM 3.2 mmol/L (3.4-5.0); SODIUM 145 mmol/L (137-145); TOTAL PROTEIN 7.9 gm/dL (6.4-8.2)
[2018-02-17 19:10] LABS: TROPONIN-I 0.085 ng/mL (0.000-0.034)
[2018-02-17 20:18] VITALS: TEMP 99.8
[2018-02-17 20:31] LABS: TRICYCLIC ANTIDEPRESS URINE NEGATIVE
[2018-02-17 22:32] VITALS: BP 141/90; PULSE 91
[2018-02-17] MEDS ORDERED: COREG12.5 MG PO ×3 (23:00→23:03)
== END 2018-02-17 23:15 | disposition home or self-care (01) ==
LOC: COL.ER 18:07 → MEDICAL 21:27 → COL.ER 21:27
PROVIDERS: Emergency Medicine
DX: T82.198A Other mechanical complication of other cardiac electronic device, initial encounter (principal); I48.91 Unspecified atrial fibrillation; E87.6 Hypokalemia; I42.9 Cardiomyopathy, unspecified; I50.9 Heart failure, unspecified
CPT/HCPCS: J1170; J7030

== ENCOUNTER → 2018-02-27 | Outpatient (CLI) | payer BC ==
[2018-02-27 14:18] LABS: ALBUMIN 3.9 gm/dL (3.5-5.0); CREATININE, serum 1.04 mg/dL (0.66-1.25); MAGNESIUM 2.3 mg/dL (1.6-2.3); PHOSPHOROUS 3.9 mg/dL (2.5-4.5); POTASSIUM 4.4 mmol/L (3.4-5.0)
== END ==
LOC: COL.LAB 11:59
PROVIDERS: Family Medicine
DX: R20.0 Anesthesia of skin (principal); R73.03 Prediabetes

== ENCOUNTER 2019-02-13 11:24 | Inpatient (IN) | payer OTHER ==
[~2019-02-13] VITALS: Ht 175.3 cm; Wt 106.0 kg
[2019-02-13] MEDS ORDERED: GLUCOPHAGE500 MG/TAB PO (11:30)
[2019-02-13 12:28] LABS: BASO % 0.5 % (0.0-2.0); EOS # 0.4 (0.0-0.7); EOS % 4.8 % (0-4.0); GRAN # 5.3 (1.4-6.5); HEMATOCRIT 43.8 % (42.0-52.0); HEMOGLOBIN 13.4 g/dl (13.5-18.0); LYMPH # 1.5 (1.2-3.4); LYMPH % 18.5 % (20.0-51.0); MEAN CELL VOLUME 89 fl (80.0-100.0); MEAN CORPUSCULAR HEMOGLOBIN 27 pg (27.0-31.0); MEAN CORPUSCULAR HGB CONC 31 g/dl (33.0-37.0); MEAN PLATELET VOLUME 9.4 fl (7.4-10.4); PLATELET COUNT 399 K/mm3 (130-400); RED BLOOD COUNT 4.92 M/mm3 (4.20-5.60); REDCELL DISTRIBUTION WIDTH-CV 13.6 % (11.5-14.5)
[2019-02-13 12:30] LABS: INR 1.1 (0.8-3.0); PROTHROMBIN TIME 12.8 SECONDS (9.7-12.8)
[2019-02-13 12:32] LABS: ALBUMIN 3.8 gm/dL (3.5-5.0); BILIRUBIN,TOTAL 0.2 mg/dL (0.0-1.0); CALCIUM 8.5 mg/dL (8.4-10.2); CREATININE, serum 1.29 (0.66-1.25); TOTAL PROTEIN 7.6 gm/dL (6.4-8.2)
[2019-02-13 12:44] LABS: TROPONIN-I 0.03 ng/mL (0.000-0.035)
[2019-02-13 13:38] LABS: ACETAMINOPHEN < 10 ug/mL (10-30); ALCOHOL(ethanol),MEDICAL < 10 mg/dL
--- NOTE | 2019-02-13 15:30 | NUR ---
Patient admitted to unit and resting comfortably. Able to answer most questions, but cannot remember specifics related to when things occured, dose of medications taking, or some of the medications he was taking. Alert but drowsy, drifts off while talking and taking in information. Arrived with amio drip infusing through LAC. Patient was unable to recall multiple items with his health history as well, known items completed.
[2019-02-13 16:00] VITALS: BP 105/69; PULSE 64; TEMP 98.2
[2019-02-13 18:29] VITALS: BP 108/89; PULSE 70; TEMP 98.2
[2019-02-13] MEDS ORDERED: ASPIRIN 32325 MG/TAB PO (19:47)
[2019-02-13 20:00] VITALS: BP 127/94; PULSE 68; TEMP 98.5
[2019-02-13 22:04] LABS: STREP SCREEN NEGATIVE
[2019-02-14] VITALS: BP 134/90; PULSE 71; TEMP 98.5
[2019-02-14 04:00] VITALS: BP 137/94; PULSE 83; TEMP 98.4
[2019-02-14 05:03] LABS: BASO % 0.2 % (0.0-2.0); GRAN # 4.2 (1.4-6.5); GRAN % 77.6 % (42.2-75.2); HEMATOCRIT 41.5 % (42.0-52.0); HEMOGLOBIN 12.9 g/dl (13.5-18.0); LYMPH % 18.3 % (20.0-51.0); MEAN CELL VOLUME 88 fl (80.0-100.0); MEAN CORPUSCULAR HEMOGLOBIN 27 pg (27.0-31.0); MEAN CORPUSCULAR HGB CONC 31 g/dl (33.0-37.0); MEAN PLATELET VOLUME 9.4 fl (7.4-10.4); MONO # 0.2 (0.1-0.6); MONO % 3.5 % (1.7-9.3); PLATELET COUNT 354 K/mm3 (130-400); REDCELL DISTRIBUTION WIDTH-CV 13.4 % (11.5-14.5)
[2019-02-14 05:31] LABS: ALBUMIN 3.8 gm/dL (3.5-5.0); BILIRUBIN,TOTAL 0.4 mg/dL (0.0-1.0); CALCIUM 8.6 mg/dL (8.4-10.2); MAGNESIUM 2.2 mg/dL (1.6-2.3); POTASSIUM 4.7 mmol/L (3.4-5.0); TOTAL PROTEIN 7.8 gm/dL (6.4-8.2)
[2019-02-14 05:59] LABS: TSH w REFLEX 0.107 uIU/mL (0.465-4.680)
--- NOTE | 2019-02-14 07:33 | NUR ---
gave report to dax carlson.
[2019-02-14 08:00] VITALS: BP 148/101; PULSE 69; TEMP 98.3
--- NOTE | 2019-02-14 08:00 | NUR ---
Pt AAOx4 resting in bed. MD Celina here at bedside-made aware of intermittant NSR/AFib over night with HR this morning fluctuating from 70's-160's. Plan for a [facility] today - consent obtained by MD Celina (no word from CV on procedure time)
[2019-02-14 12:00] VITALS: BP 167/114; PULSE 73; TEMP 97.8
--- NOTE | 2019-02-14 13:28 | NUR ---
SW met with patient to discuss discharge planning. Patient lives independently at home. Joey does not use any DME or home health services. Patient's PCP is Dr Layton and he obtains prescriptions from [facility]. Patient's insurance is not effective until Jun 11 but patient does not express any financial difficulties with obtaining medication. SW does not anticipate any discharge needs.
[2019-02-14 14:56] VITALS: BP 140/86; PULSE 89; TEMP 98.6
--- NOTE | 2019-02-14 15:15 | NUR ---
Patient arrived to the Medical floor room 309 from [facility] at [facility], he is alert/oriented, vital signs have been stable, denies pain, will continue to monitor
--- NOTE | 2019-02-14 19:40 | NUR ---
Patient resting in bed. Assessment completed. Pt c/o indigestion, had refused protonix earlier inthe shift, gave patient the protonix which has helped relieve indigestion; patient also sat up in bed. Denies pain. NO further needs at this time.
[2019-02-14 19:41] VITALS: BP 162/79; PULSE 87; TEMP 98.5
--- NOTE | 2019-02-14 20:36 | NUR ---
Patient sitting up in bed, assessment copmleted, denies pain. Given razor, soap, toothbrush, and toothpaste. Evening meds adminsitered. NO further needs at this time.
[2019-02-15 00:15] VITALS: BP 130/79; PULSE 88; TEMP 98.7
[2019-02-15 03:04] VITALS: BP 117/79; PULSE 93; TEMP 98.4
--- NOTE | 2019-02-15 05:16 | NUR ---
Pt slept most of the night, VSS, afebrile. NO needs at this time.
[2019-02-15 06:03] LABS: BASO % 0.3 % (0.0-2.0); EOS # 0.1 (0.0-0.7); EOS % 0.6 % (0-4.0); GRAN # 7.4 (1.4-6.5); GRAN % 68.8 % (42.2-75.2); HEMATOCRIT 45.1 % (42.0-52.0); HEMOGLOBIN 14.3 g/dl (13.5-18.0); LYMPH # 2.3 (1.2-3.4); LYMPH % 21.3 % (20.0-51.0); MEAN CELL VOLUME 86 fl (80.0-100.0); MEAN CORPUSCULAR HEMOGLOBIN 27 pg (27.0-31.0); MEAN CORPUSCULAR HGB CONC 32 g/dl (33.0-37.0); MEAN PLATELET VOLUME 9.7 fl (7.4-10.4); MONO # 0.9 (0.1-0.6); MONO % 8.7 % (1.7-9.3); PLATELET COUNT 417 K/mm3 (130-400); RED BLOOD COUNT 5.25 M/mm3 (4.20-5.60); REDCELL DISTRIBUTION WIDTH-CV 13.6 % (11.5-14.5)
[2019-02-15 06:16] LABS: CALCIUM 9.1 mg/dL (8.4-10.2); CREATININE, serum 0.95 (0.66-1.25); POTASSIUM 3.9 mmol/L (3.4-5.0)
--- NOTE | 2019-02-15 07:10 | NUR ---
report given to dax ozuna.
[2019-02-15 07:39] VITALS: BP 136/86; PULSE 95; TEMP 98.3
--- NOTE | 2019-02-15 09:53 | NUR ---
Pt is awake and A/Ox4, resting in bed. He denies pain at this time. Saline lock to left hand is free of complications. Pt is up in room as tolerated. States he is going home today. Denies any other needs.
--- NOTE | 2019-02-15 11:21 | NUR ---
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 No needs right now.
[2019-02-15 11:28] VITALS: BP 124/73; PULSE 81; TEMP 98.2
[2019-02-15] MEDS ORDERED: AMOXICILLIN 8751 TAB PO (12:54)
[2019-02-15] MEDS ORDERED: COUMADIN 5MG5 MG/TAB PO (12:55)
[2019-02-15] MEDS ORDERED: CORDARONE200 MG/TAB PO (12:57)
[2019-02-15] MEDS ORDERED: ALDACTONE 25MG25 M1 PO (12:58)
[2019-02-15] MEDS ORDERED: PREDNISONE10 MG PO (13:00)
[2019-02-15] MEDS ORDERED: ASPIRIN 81M81 MG/TA2 PO (13:22)
--- NOTE | 2019-02-15 13:35 | NUR ---
Financial counselor, Siomara, met with the patient and completed a Medicaid application with him. The patient is to discharge back home today, 02/15. No additional needs at this time.
--- NOTE | 2019-02-19 13:47 | NUR ---
The pharmacist, Katty, informed [facility] that the patient contacted her and told her that he is unable to afford his prescription for Cordarone. SW contacted the patient and he confirmed that he is unable to afford that med. [facility] provided a med voucher to the patient for the Cordarone. $14.30. [facility] faxed the med voucher and script to Dominick at [facility]. The patient states that he will picker machine operator the med today, 02/19.
== END 2019-02-15 14:51 | disposition home or self-care (01) | DRG 309 ==
LOC: COL.ER 11:24 → ICU 13:29 → MEDICAL 02-14 14:32
PROVIDERS: Emergency Medicine; Hospitalist; Physician Assistant; ADMIT Internal Medicine
DX: I48.91 Unspecified atrial fibrillation (principal); I50.22 Chronic systolic (congestive) heart failure; J44.1 Chronic obstructive pulmonary disease with (acute) exacerbation; I48.0 Paroxysmal atrial fibrillation; J02.9 Acute pharyngitis, unspecified; I42.9 Cardiomyopathy, unspecified; N28.9 Disorder of kidney and ureter, unspecified; E11.9 Type 2 diabetes mellitus without complications; R00.0 Tachycardia, unspecified; I11.0 Hypertensive heart disease with heart failure; E66.9 Obesity, unspecified; F17.210 Nicotine dependence, cigarettes, uncomplicated; Z68.35 Body mass index [BMI] 35.0-35.9, adult; Z95.810 Presence of automatic (implantable) cardiac defibrillator
CPT/HCPCS: 99223-AI; 99232-AI; 99239; A4216; J0282; J0696; J1644; J7030; J7060; J7512

== ENCOUNTER 2019-03-29 08:26 | Emergency (ER) | payer OTHER ==
[~2019-03-29] VITALS: Ht 175.3 cm; Wt 110.0 kg
[~2019-03-29 08:26] MED LIST changes: +ALDACTONE 25MG25 M1 PO; +AMOXICILLIN 8751 TAB PO; +ASPIRIN 32325 MG/TAB PO; +CORDARONE200 MG/TAB PO; +COUMADIN 5MG5 MG/TAB PO; +GLUCOPHAGE500 MG/TAB PO
[2019-03-29 09:07] VITALS: BP 138/82
[2019-03-29 09:58] LABS: BASO % 0.6 % (0.0-2.0); EOS # 0.3 (0.0-0.7); EOS % 6.1 % (0-4.0); GRAN # 3.1 (1.4-6.5); GRAN % 57.2 % (42.2-75.2); HEMATOCRIT 44.1 % (42.0-52.0); HEMOGLOBIN 13.9 g/dl (13.5-18.0); LYMPH # 1.5 (1.2-3.4); LYMPH % 26.7 % (20.0-51.0); MEAN CELL VOLUME 88 fl (80.0-100.0); MEAN CORPUSCULAR HEMOGLOBIN 28 pg (27.0-31.0); MEAN CORPUSCULAR HGB CONC 32 g/dl (33.0-37.0); MEAN PLATELET VOLUME 8.9 fl (7.4-10.4); MONO # 0.5 (0.1-0.6); MONO % 9.2 % (1.7-9.3); PLATELET COUNT 306 K/mm3 (130-400); RED BLOOD COUNT 4.99 M/mm3 (4.20-5.60); REDCELL DISTRIBUTION WIDTH-CV 14.8 % (11.5-14.5)
[2019-03-29 11:08] LABS: BILIRUBIN,TOTAL 0.4 mg/dL (0.0-1.0); CALCIUM 8.5 mg/dL (8.4-10.2); CREATININE, serum 1.24 (0.66-1.25); POTASSIUM 4.4 mmol/L (3.4-5.0); TOTAL PROTEIN 7.9 gm/dL (6.4-8.2)
[2019-03-29 11:53] LABS: C-REACTIVE PROTEIN 1.5 mg/dL (0.0-0.9)
[2019-03-29 12:05] VITALS: PULSE 71; TEMP 97.3
== END 2019-03-29 12:10 | disposition home or self-care (01) ==
LOC: COL.ER 08:26
PROVIDERS: Physician Assistant
DX: B35.4 Tinea corporis (principal); R19.7 Diarrhea, unspecified; Z79.01 Long term (current) use of anticoagulants; Z79.82 Long term (current) use of aspirin

== ENCOUNTER 2019-04-15 07:04 | Emergency (ER) | payer OTHER ==
[~2019-04-15] VITALS: Ht 175.3 cm; Wt 109.5 kg
[2019-04-15 07:07] VITALS: BP 208/111; TEMP 97.7
[2019-04-15] MEDS ORDERED: AMOXICILLIN 50500 MG PO (07:38)
[2019-04-15 08:20] VITALS: PULSE 83
== END 2019-04-15 08:25 | disposition home or self-care (01) ==
LOC: COL.ER 07:04
DX: S02.5XXA Fracture of tooth (traumatic), initial encounter for closed fracture (principal); I10 Essential (primary) hypertension; F17.210 Nicotine dependence, cigarettes, uncomplicated; I48.91 Unspecified atrial fibrillation; Z79.01 Long term (current) use of anticoagulants; X58.XXXA Exposure to other specified factors, initial encounter

== ENCOUNTER → 2019-04-15 | Outpatient (CLI) | payer OTHER ==
[2019-04-15 15:13] LABS: STOOL FOR OCCULT BLOOD NEGATIVE (NEGATIVE)
== END ==
LOC: COL.LAB 14:06
PROVIDERS: Physician Assistant Medical
DX: L29.0 Pruritus ani (principal)

== ENCOUNTER 2019-04-17 00:21 | Emergency (ER) | payer OTHER | END 2019-04-17 01:06 | disposition left against medical advice (07) | LOC: COL.ER 00:21 | DX: Z72.9 Problem related to lifestyle, unspecified (principal) ==

== ENCOUNTER 2019-04-17 01:30 | Emergency (ER) | payer OTHER ==
[~2019-04-17] VITALS: Ht 175.3 cm; Wt 106.8 kg
[2019-04-17 01:40] VITALS: BP 154/107; TEMP 97.8
[2019-04-17 02:47] VITALS: PULSE 96
== END 2019-04-17 02:44 | disposition left against medical advice (07) ==
LOC: COL.ER 01:30
DX: R20.2 Paresthesia of skin (principal); I50.9 Heart failure, unspecified; J44.9 Chronic obstructive pulmonary disease, unspecified; I11.0 Hypertensive heart disease with heart failure; I42.9 Cardiomyopathy, unspecified; Z79.01 Long term (current) use of anticoagulants; Z79.82 Long term (current) use of aspirin

== ENCOUNTER 2019-05-20 02:09 | Emergency (ER) | payer MEDICAID ==
[~2019-05-20] VITALS: Ht 175.3 cm; Wt 112.7 kg
[2019-05-20 02:56] LABS: ALBUMIN 4.3 gm/dL (3.5-5.0); BILIRUBIN,TOTAL 0.6 mg/dL (0.0-1.0); CALCIUM 8.7 mg/dL (8.4-10.2); CREATININE, serum 1.4 (0.66-1.25); POTASSIUM 3.3 mmol/L (3.4-5.0); TOTAL PROTEIN 7.9 gm/dL (6.4-8.2)
[2019-05-20 03:25] VITALS: BP 145/97; PULSE 89
== END 2019-05-20 03:25 | disposition home or self-care (01) ==
LOC: COL.ER 02:09
PROVIDERS: Emergency Medicine
DX: L29.9 Pruritus, unspecified (principal); I10 Essential (primary) hypertension; J44.9 Chronic obstructive pulmonary disease, unspecified; M54.9 Dorsalgia, unspecified; G89.29 Other chronic pain; F17.210 Nicotine dependence, cigarettes, uncomplicated; F12.90 Cannabis use, unspecified, uncomplicated; F14.90 Cocaine use, unspecified, uncomplicated; F15.90 Other stimulant use, unspecified, uncomplicated; Z79.01 Long term (current) use of anticoagulants; Z79.82 Long term (current) use of aspirin; Z95.0 Presence of cardiac pacemaker; Z95.5 Presence of coronary angioplasty implant and graft

== ENCOUNTER 2019-06-18 12:21 | Emergency (ER) | payer MEDICAID ==
[~2019-06-18] VITALS: Ht 175.3 cm; Wt 111.4 kg
[2019-06-18 12:24] VITALS: TEMP 98.5
[2019-06-18] MEDS ORDERED: PROAIR HFA0.09 MG/AC IH (12:40)
[2019-06-18 14:02] LABS: BASO # 0.1 (0.0-0.2); BASO % 0.7 % (0.0-2.0); EOS # 0.4 (0.0-0.7); EOS % 4.7 % (0-4.0); GRAN # 4.2 (1.4-6.5); GRAN % 55.8 % (42.2-75.2); HEMATOCRIT 45.3 % (42.0-52.0); HEMOGLOBIN 14.2 g/dl (13.5-18.0); LYMPH # 2.1 (1.2-3.4); LYMPH % 27.1 % (20.0-51.0); MEAN CELL VOLUME 90 fl (80.0-100.0); MEAN CORPUSCULAR HEMOGLOBIN 28 pg (27.0-31.0); MEAN CORPUSCULAR HGB CONC 31 g/dl (33.0-37.0); MEAN PLATELET VOLUME 9.7 fl (7.4-10.4); MONO # 0.9 (0.1-0.6); MONO % 11.4 % (1.7-9.3); PLATELET COUNT 320 K/mm3 (130-400); RED BLOOD COUNT 5.02 M/mm3 (4.20-5.60); REDCELL DISTRIBUTION WIDTH-CV 14.3 % (11.5-14.5)
[2019-06-18 14:17] LABS: ALBUMIN 4.3 gm/dL (3.5-5.0); BILIRUBIN,TOTAL 0.2 mg/dL (0.0-1.0); CALCIUM 8.7 mg/dL (8.4-10.2); CREATININE, serum 1.04 (0.66-1.25); TOTAL PROTEIN 7.9 gm/dL (6.4-8.2)
[2019-06-18] MEDS ORDERED: PREDNISONE20 MG PO (15:34)
[2019-06-18 16:16] VITALS: BP 138/107; PULSE 87
== END 2019-06-18 16:16 | disposition home or self-care (01) ==
LOC: COL.ER 12:21
PROVIDERS: Nurse Practitioner
DX: J44.1 Chronic obstructive pulmonary disease with (acute) exacerbation (principal); I10 Essential (primary) hypertension; E11.9 Type 2 diabetes mellitus without complications; Z79.84 Long term (current) use of oral hypoglycemic drugs; Z87.891 Personal history of nicotine dependence; Z88.5 Allergy status to narcotic agent; Z95.0 Presence of cardiac pacemaker; Z79.82 Long term (current) use of aspirin
CPT/HCPCS: J2930

== ENCOUNTER 2019-11-19 04:35 | Emergency (ER) | payer MEDICAID ==
[~2019-11-19] VITALS: Ht 175.3 cm; Wt 113.6 kg
[2019-11-19 04:38] VITALS: TEMP 98.4
[2019-11-19 05:18] LABS: ALKALINE PHOSPHATASE 94 U/L (50-136); ANION GAP 11 mmol/L (7-16); AST,SGOT 39 U/L (15-37); BILIRUBIN,TOTAL 0.6 mg/dL (0.0-1.0); BLOOD UREA NITROGEN 16 mg/dL (9-20); CALCIUM 8.4 mg/dL (8.4-10.2); CARBON DIOXIDE 25 mmol/L (22-30); CHLORIDE 105 mmol/L (98-107); CREATININE, serum 1.16 (0.66-1.25); GLUCOSE 122 mg/dL (74-106); MAGNESIUM 2.1 mg/dL (1.6-2.3); PHOSPHOROUS 4.8 mg/dL (2.5-4.5); POTASSIUM 3.2 mmol/L (3.4-5.0); SODIUM 141 mmol/L (137-145); TOTAL PROTEIN 7.3 gm/dL (6.4-8.2)
[2019-11-19 05:20] LABS: BASO % 0.2 % (0.0-2.0); EOS # 0.3 (0.0-0.7); EOS % 3.3 % (0-4.0); GRAN % 69.5 % (42.2-75.2); HEMATOCRIT 42.9 % (42.0-52.0); HEMOGLOBIN 13.6 g/dl (13.5-18.0); LYMPH # 1.5 (1.2-3.4); LYMPH % 15.3 % (20.0-51.0); MEAN CELL VOLUME 88 fl (80.0-100.0); MEAN CORPUSCULAR HEMOGLOBIN 28 pg (27.0-31.0); MEAN CORPUSCULAR HGB CONC 32 g/dl (33.0-37.0); MEAN PLATELET VOLUME 9.1 fl (7.4-10.4); MONO # 1.2 (0.1-0.6); MONO % 11.5 % (1.7-9.3); PLATELET COUNT 270 K/mm3 (130-400); REDCELL DISTRIBUTION WIDTH-CV 13.8 % (11.5-14.5)
[2019-11-19 05:38] LABS: ACETAMINOPHEN < 10 ug/mL (10-30); ALANINE AMINOTRANSFERASE 28 U/L (4-49); ALCOHOL(ethanol),MEDICAL < 10 mg/dL
[2019-11-19 06:16] LABS: COLLECTION METHOD CLEAN CATCH
[2019-11-19 06:22] LABS: MUCOUS Present /lpf; PH 7 (5-8); SQUAMOUS EPITHELIAL 0-2 /hpf; URINE APPEARANCE Clear; URINE BACTERIA Rare /hpf; URINE BILIRUBIN Negative (NEGATIVE); URINE BLOOD 1+ (NEGATIVE); URINE COLOR Yellow; URINE GLUCOSE Negative (NEGATIVE); URINE KETONE Negative (NEGATIVE); URINE LEUKOCYTE ESTERASE Negative (NEGATIVE); URINE NITRATE Negative (NEGATIVE); URINE PROTEIN(semi-quant) Negative (NEGATIVE); URINE UROBILINOGEN Negative (NEGATIVE)
[2019-11-19 06:35] LABS: TRICYCLIC ANTIDEPRESS URINE NEGATIVE
[2019-11-19] MEDS ORDERED: PREDNISONE20 MG PO (06:57)
[2019-11-19 07:04] VITALS: BP 137/98; PULSE 83
== END 2019-11-19 07:14 | disposition home or self-care (01) ==
LOC: COL.ER 04:35
PROVIDERS: Emergency Medicine
DX: F15.10 Other stimulant abuse, uncomplicated (principal); J44.9 Chronic obstructive pulmonary disease, unspecified; F17.210 Nicotine dependence, cigarettes, uncomplicated; I50.9 Heart failure, unspecified; Z79.52 Long term (current) use of systemic steroids; Z79.84 Long term (current) use of oral hypoglycemic drugs; Z79.82 Long term (current) use of aspirin
CPT/HCPCS: J7512

== ENCOUNTER 2020-01-05 13:26 | Emergency (ER) | payer MEDICAID ==
[~2020-01-05] VITALS: Ht 172.7 cm; Wt 113.6 kg
[2020-01-05 13:38] VITALS: TEMP 98.4
[2020-01-05] MEDS ORDERED: [UNRECOGNIZED DRUG - OTHER] PO (14:14)
[2020-01-05] MEDS ORDERED: VISTARIL50 MG PO (14:24)
[2020-01-05] MEDS ORDERED: SEPTRA DS 8001 TAB PO (14:24)
[2020-01-05 14:42] VITALS: BP 158/95; PULSE 98
== END 2020-01-05 14:45 | disposition home or self-care (01) ==
LOC: COL.ER 13:26
DX: B71.9 Cestode infection, unspecified (principal); L03.116 Cellulitis of left lower limb; L03.115 Cellulitis of right lower limb; I11.0 Hypertensive heart disease with heart failure; I50.9 Heart failure, unspecified; F17.210 Nicotine dependence, cigarettes, uncomplicated; Z95.0 Presence of cardiac pacemaker; Z79.82 Long term (current) use of aspirin; Z79.84 Long term (current) use of oral hypoglycemic drugs

== ENCOUNTER 2020-01-07 06:17 | Emergency (ER) | payer MEDICAID ==
[~2020-01-07] VITALS: Ht 172.7 cm; Wt 113.6 kg
[~2020-01-07 06:17] MED LIST changes: +VISTARIL50 MG PO; +[UNRECOGNIZED DRUG - OTHER] PO
[2020-01-07 06:39] VITALS: BP 164/88; TEMP 98.3
[2020-01-07] MEDS ORDERED: CORDARONE200 MG/TAB PO (07:36)
[2020-01-07 07:50] VITALS: PULSE 101
== END 2020-01-07 08:55 | disposition home or self-care (01) ==
LOC: COL.ER 06:17
DX: R19.7 Diarrhea, unspecified (principal); I42.8 Other cardiomyopathies; J44.9 Chronic obstructive pulmonary disease, unspecified; E11.9 Type 2 diabetes mellitus without complications; I10 Essential (primary) hypertension; Z98.890 Other specified postprocedural states; Z79.899 Other long term (current) drug therapy; Z95.810 Presence of automatic (implantable) cardiac defibrillator; Z79.82 Long term (current) use of aspirin; Z79.84 Long term (current) use of oral hypoglycemic drugs

== ENCOUNTER 2020-01-13 13:29 | Emergency (ER) | payer MEDICAID ==
[~2020-01-13] VITALS: Ht 175.3 cm; Wt 113.6 kg
[2020-01-13 13:35] VITALS: TEMP 98.4
[2020-01-13 14:27] LABS: BASO # 0.1 (0.0-0.2); BASO % 0.7 % (0.0-2.0); EOS # 0.3 (0.0-0.7); EOS % 3.9 % (0-4.0); GRAN # 4.6 (1.4-6.5); GRAN % 66.2 % (42.2-75.2); HEMATOCRIT 39.8 % (42.0-52.0); HEMOGLOBIN 12.5 g/dl (13.5-18.0); LYMPH # 1.4 (1.2-3.4); LYMPH % 19.9 % (20.0-51.0); MEAN CELL VOLUME 89 fl (80.0-100.0); MEAN CORPUSCULAR HEMOGLOBIN 28 pg (27.0-31.0); MEAN CORPUSCULAR HGB CONC 31 g/dl (33.0-37.0); MEAN PLATELET VOLUME 9.4 fl (7.4-10.4); MONO # 0.6 (0.1-0.6); MONO % 9.2 % (1.7-9.3); PLATELET COUNT 289 K/mm3 (130-400); RED BLOOD COUNT 4.48 M/mm3 (4.20-5.60); REDCELL DISTRIBUTION WIDTH-CV 13.9 % (11.5-14.5)
[2020-01-13 14:39] LABS: BILIRUBIN,TOTAL 0.2 mg/dL (0.0-1.0); C-REACTIVE PROTEIN 1.1 mg/dL (0.0-0.9); CALCIUM 8.7 mg/dL (8.4-10.2); CREATININE, serum 1.28 (0.66-1.25); POTASSIUM 4.3 mmol/L (3.4-5.0); TOTAL PROTEIN 7.3 gm/dL (6.4-8.2)
[2020-01-13 15:03] LABS: ERYTHROCYTE SEDIMENTATION RATE 9 mm/hr (0-30)
[2020-01-13] MEDS ORDERED: FIORICET 325 MG1 TA1 PO (15:20)
[2020-01-13 15:27] VITALS: BP 119/80; PULSE 72
== END 2020-01-13 15:29 | disposition home or self-care (01) ==
LOC: COL.ER 13:29
PROVIDERS: Emergency Medicine
DX: R51 Headache (principal); E11.9 Type 2 diabetes mellitus without complications; I10 Essential (primary) hypertension; F17.210 Nicotine dependence, cigarettes, uncomplicated; Z79.84 Long term (current) use of oral hypoglycemic drugs; Z79.82 Long term (current) use of aspirin
CPT/HCPCS: J1170; J2405; J7030

== ENCOUNTER 2020-01-18 16:50 | Emergency (ER) | payer MEDICAID ==
[~2020-01-18] VITALS: Ht 175.3 cm; Wt 111.4 kg
[~2020-01-18 16:50] MED LIST changes: +FIORICET 325 MG1 TA1 PO
[2020-01-18 16:58] VITALS: BP 151/72; TEMP 98.4
[2020-01-18] MEDS ORDERED: NEURONTIN300 MG/CAP PO (17:32)
[2020-01-18] MEDS ORDERED: GLUCOPHAGE500 MG/TAB PO (17:32)
[2020-01-18 17:51] VITALS: PULSE 71
== END 2020-01-18 17:41 | disposition home or self-care (01) ==
LOC: COL.ER 16:50
DX: E11.40 Type 2 diabetes mellitus with diabetic neuropathy, unspecified (principal); J44.9 Chronic obstructive pulmonary disease, unspecified; I10 Essential (primary) hypertension; Z79.82 Long term (current) use of aspirin; Z79.84 Long term (current) use of oral hypoglycemic drugs

== ENCOUNTER → 2020-05-13 | Outpatient (CLI) | payer MEDICAID ==
[~2020-05-13] MED LIST changes: +NEURONTIN300 MG/CAP PO
== END ==
LOC: ZCOL.LAB 12:23
DX: R07.89 Other chest pain (principal)

== ENCOUNTER → 2020-07-22 | Outpatient (CLI) | payer MEDICARE, MEDICAID ==
[2020-07-22 11:17] LABS: ARTERIAL BLD GAS TCO2 CT 26.1; ARTERIAL BLOOD GAS BASE EXCESS 0.8 (-2-2); ARTERIAL BLOOD GAS HCO3 24.9 meq/L (22-26); ARTERIAL BLOOD GAS PCO2 38.3 mmHg (35-45); ARTERIAL BLOOD GAS PO2 84.7 mmHg (80-100); ARTERIAL BLOOD GAS pH 7.43 (7.35-7.45)
== END ==
LOC: COL.PUL 10:46
PROVIDERS: Internal Medicine Pulmonary Disease
DX: R06.02 Shortness of breath (principal)

== ENCOUNTER 2020-11-23 21:23 | Observation (INO) | payer MEDICARE, MEDICAID ==
[~2020-11-23] VITALS: Ht 175.3 cm; Wt 122.9 kg
[2020-11-23 22:26] LABS: BASO % 0.4 % (0.0-2.0); EOS # 0.2 (0.0-0.7); EOS % 3.2 % (0-4.0); GRAN # 4.7 (1.4-6.5); GRAN % 64.9 % (42.2-75.2); HEMATOCRIT 41.7 % (42.0-52.0); HEMOGLOBIN 13.5 g/dl (13.5-18.0); LYMPH # 1.4 (1.2-3.4); LYMPH % 19.4 % (20.0-51.0); MEAN CELL VOLUME 87 fl (80.0-100.0); MEAN CORPUSCULAR HEMOGLOBIN 28 pg (27.0-31.0); MEAN CORPUSCULAR HGB CONC 32 g/dl (33.0-37.0); MEAN PLATELET VOLUME 9.5 fl (7.4-10.4); MONO # 0.9 (0.1-0.6); MONO % 11.8 % (1.7-9.3); PLATELET COUNT 288 K/mm3 (130-400); RED BLOOD COUNT 4.82 M/mm3 (4.20-5.60); REDCELL DISTRIBUTION WIDTH-CV 13.8 % (11.5-14.5)
[2020-11-23 22:39] LABS: ALANINE AMINOTRANSFERASE 32 U/L (4-49); ALBUMIN 4.1 gm/dL (3.5-5.0); ALKALINE PHOSPHATASE 97 U/L (50-136); ANION GAP 10 mmol/L (7-16); AST,SGOT 39 U/L (15-37); BILIRUBIN,TOTAL 0.2 mg/dL (0.0-1.0); BLOOD UREA NITROGEN 23 mg/dL (9-20); CALCIUM 8.1 mg/dL (8.4-10.2); CARBON DIOXIDE 24 mmol/L (22-30); CHLORIDE 105 mmol/L (98-107); CREATININE, serum 1.22 (0.66-1.25); GLUCOSE 118 mg/dL (74-106); POTASSIUM 3.7 mmol/L (3.4-5.0); SODIUM 139 mmol/L (137-145); TOTAL PROTEIN 7.4 gm/dL (6.4-8.2)
[2020-11-23 22:40] LABS: ARTERIAL BLD GAS O2 SATURATION 95.9 % (92-100); ARTERIAL BLOOD GAS BASE EXCESS -0.3 (-2-2); ARTERIAL BLOOD GAS HCO3 25.6 meq/L (22-26); ARTERIAL BLOOD GAS PCO2 46.7 mmHg (35-45); ARTERIAL BLOOD GAS PO2 77.5 mmHg (80-100); ARTERIAL BLOOD GAS pH 7.36 (7.35-7.45)
[2020-11-23 22:51] LABS: TROPONIN-I < 0.012 ng/mL (0.000-0.035)
[2020-11-23] MEDS ORDERED: PROAIR HFA0.09 MG/AC IH (23:23)
[2020-11-23] MEDS ORDERED: MEDROL 4MG DOSPA4 MG PO (23:23)
[2020-11-23] MEDS ORDERED: DOXYCYCLINE 10100 MG PO (23:23)
[2020-11-24] VITALS (7 sets, daily range): BP systolic 99–126; BP diastolic 47–79; PULSE 68–81; TEMP 97.8–98.3
--- NOTE | 2020-11-24 01:35 | NUR ---
Received patient from ED. Patient is alert and oriented. He is on O2 at 2lpm via NC. His lungs are diminished and with insp/exp wheezes. No other orders yet. Will inform Poly HICKEY that patient is already in the room.
[2020-11-24] MEDS ORDERED: COREG 25MG25 MG/TAB PO (02:11)
[2020-11-24] MEDS ORDERED: LASIX 40MG TABL40 MG PO (02:11)
--- NOTE | 2020-11-24 02:35 | NUR ---
Instructed patient that we need sample of his sputum, urine and stool. Patient able to provide sputum sample already. He has productive cough. Sputum is white and clear. Robitussin given for his cough. Instructed patient regarding his diet and fluid restriction. 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
--- NOTE | 2020-11-24 03:30 | NUR ---
Pacemaker interrogated. Informed Poly HICKEY that patient states the Robitussin didn't help with his coughing. She ordered Isaiah Arenas.
--- NOTE | 2020-11-24 05:58 | NUR ---
Patient was able to sleep a bit after giving him the Tessalon. Still on O2 at 2lpm via NC. Wheezing can be heard while he's asleep.
[2020-11-24 06:56] LABS: HEMATOCRIT 42.4 % (42.0-52.0); HEMOGLOBIN 13.4 g/dl (13.5-18.0); MEAN CELL VOLUME 89 fl (80.0-100.0); MEAN CORPUSCULAR HEMOGLOBIN 28 pg (27.0-31.0); MEAN CORPUSCULAR HGB CONC 32 g/dl (33.0-37.0); MEAN PLATELET VOLUME 10.3 fl (7.4-10.4); PLATELET COUNT 281 K/mm3 (130-400); RED BLOOD COUNT 4.79 M/mm3 (4.20-5.60); REDCELL DISTRIBUTION WIDTH-CV 14.1 % (11.5-14.5)
[2020-11-24 06:57] LABS: CALCIUM 7.8 mg/dL (8.4-10.2); CREATININE, serum 1.02 (0.66-1.25); POTASSIUM 4.2 mmol/L (3.4-5.0)
--- NOTE | 2020-11-24 07:15 | NUR ---
sitting up on side of bed, bedside shift report received from EUFEMIA Ordonez
[2020-11-24 07:44] LABS: BAND 1 % (0-10); EOSINOPHIL 1 % (0-4); LYMPHOCYTE 7 % (20.0-51.0); NEUTROPHILS 89 % (42.0-75.2); PLATELET ESTIMATE NORMAL (NORMAL)
--- NOTE | 2020-11-24 08:00 | NUR ---
sitting up on side of bed having breakfast
--- NOTE | 2020-11-24 08:45 | NUR ---
had breakfast and tolerated well, has dry hacky cough, given scheduled tessalon pearls and wants to try and rest, denies needs
--- NOTE | 2020-11-24 10:50 | NUR ---
Dr Mcbride and care team in to see patient, full assessment completed, see intervention for further info
--- NOTE | 2020-11-24 11:58 | NUR ---
First visit from the reeling operator. prayed with patient. No other needs right now.
--- NOTE | 2020-11-24 12:15 | NUR ---
sitting up on side of bed, provided krupa per his request
--- NOTE | 2020-11-24 12:42 | NUR ---
sitting up on side of bed having lunch, POLINA Mckenzie in to see patient earlier
--- NOTE | 2020-11-24 15:52 | NUR ---
bedside shift report given to EUFEMIA Clark, medicated with tylenol 650mg for c/os headache
--- NOTE | 2020-11-24 16:41 | NUR ---
Process Equipment Operator met with patient to discuss discharge plan. Patient lives alone in [place] and sees Dr. Nunez for primary care. Patient obtains medications from [facility] with no difficulties. Patient does not use any DME and is independent with ADLS. Patient does not have Advance Directives and is not interested in setting up DPOA-HC at this time. Patient's last year and patient has four children: Kimberly (ph#[phone]), Macarena, Jacques, and Amos. Patient plans to return home upon discharge.
[2020-11-25 01:10] VITALS: BP 120/77; PULSE 88; TEMP 98
--- NOTE | 2020-11-25 04:23 | NUR ---
PATIENT AWAKE MOST OF THE NIGHT. LAID DOWN IN BED AT APPROXIMATELY 0230 AND HAS BEEN RESTING QUIETLY IN BED SINCE THEN. PATIENT REPORTS HE HAD A GOOD DAY YESTERDAY AND IS FEELING BETTER AND LOOKING FORWARD TO GOING HOME. NO NEW ISSUES NOTED BY THIS NURSE OR REPORTED BY PATIENT.
[2020-11-25 04:39] VITALS: BP 97/59; PULSE 62; TEMP 97.8
[2020-11-25 07:52] VITALS: BP 138/72; PULSE 93; TEMP 97.9
[2020-11-25] MEDS ORDERED: ZITHROMAX500 M2 PO (09:32)
[2020-11-25] MEDS ORDERED: RT ADVAIR 228 DISKUS IH (09:33)
[2020-11-25] MEDS ORDERED: PREDNISONE10 MG PO (09:35)
--- NOTE | 2020-11-25 09:37 | NUR ---
Patient pleasant. States he has n/d and that he feels he is breathing better. He is having c/o pain in abdomen muscles from coughing, tylenol given. No other c/o or needs at this time/
--- NOTE | 2020-11-25 10:13 | NUR ---
Patient had exercise oximetry ordered and will not need home oxygen at discharge. SW attended clinical rounds with the team and patient to discharge home today.
[2020-11-25] MEDS ORDERED: NORCO 325 MG-51 TAB PO (10:46)
[2020-11-25] MEDS ORDERED: TESSALON P100 MG/CAP PO (10:46)
[2020-11-25 11:51] VITALS: BP 105/65; PULSE 70; TEMP 97.7
--- NOTE | 2020-11-25 12:50 | NUR ---
PATIENT GIVEN DC INSTRUCTIONS/PACKET. PATIENT HAS NO QUESTIONS. RIGHT WRIST PIV DC WITHOUT INCIDENT. PATINET TAKEN OUT BY W/CKam
== END 2020-11-25 13:00 | disposition home or self-care (01) ==
LOC: COL.ER 21:23 → MEDICAL 23:59
PROVIDERS: Family Medicine; Student in an Organized Health Care Education/Training Program; ADMIT Internal Medicine
DX: J44.1 Chronic obstructive pulmonary disease with (acute) exacerbation (principal); J96.01 Acute respiratory failure with hypoxia; J96.02 Acute respiratory failure with hypercapnia; I11.0 Hypertensive heart disease with heart failure; I25.2 Old myocardial infarction; I50.20 Unspecified systolic (congestive) heart failure; I42.9 Cardiomyopathy, unspecified; E11.9 Type 2 diabetes mellitus without complications; Z95.810 Presence of automatic (implantable) cardiac defibrillator; Z20.822 Contact with and (suspected) exposure to COVID-19; Z88.5 Allergy status to narcotic agent; Z88.6 Allergy status to analgesic agent; Z79.82 Long term (current) use of aspirin; Z79.899 Other long term (current) drug therapy; Z87.891 Personal history of nicotine dependence
CPT/HCPCS: 99239; G0008; G0378; J0456; J1100; J1650; J1815; J2920; J7030; J7050; J7512

== ENCOUNTER → 2021-08-02 | Outpatient (CLI) | payer MEDICARE, MEDICAID ==
[~2021-08-02] MED LIST changes: +COREG 25MG25 MG/TAB PO; +RT ADVAIR 228 DISKUS IH; +TESSALON P100 MG/CAP PO; +ZITHROMAX500 M2 PO
[2021-08-02 13:15] LABS: BLOOD UREA NITROGEN 12 mg/dL (8-26); CARBON DIOXIDE 26 mmol/L (22-29); CHLORIDE 103 mmol/L (98-107); GLUCOSE 133 mg/dL (70-99); POTASSIUM 4.1 mmol/L (3.5-4.5); SODIUM 138 mmol/L (136-145); THYROID STIMULATING HORMONE 0.706 uIU/mL (0.350-4.940)
[2021-08-02 13:16] LABS: TROPONIN-I < 0.010 ng/mL (0.00-0.033)
[2021-08-02 13:43] LABS: ANION GAP 9 mmol/L (7-16)
== END ==
LOC: ZCOL.LAB 11:33
PROVIDERS: Nurse Practitioner
DX: R07.89 Other chest pain (principal); R06.02 Shortness of breath

== ENCOUNTER 2022-06-08 06:18 | Emergency (ER) | payer MEDICARE, MEDICAID ==
[~2022-06-08] VITALS: Ht 154.9 cm; Wt 118.2 kg
[2022-06-08 06:27] VITALS: BP 103/72; TEMP 97.8
[2022-06-08] MEDS ORDERED: AMOXICILLIN 50500 MG PO (07:00)
[2022-06-08] MEDS ORDERED: NORCO 325 MG-51 TAB PO (07:00)
[2022-06-08 07:18] VITALS: PULSE 72
== END 2022-06-08 07:18 | disposition home or self-care (01) ==
LOC: COL.ER 06:18
DX: K02.9 Dental caries, unspecified (principal); F17.200 Nicotine dependence, unspecified, uncomplicated; Z28.310 Unvaccinated for COVID-19; Z88.5 Allergy status to narcotic agent; Z88.6 Allergy status to analgesic agent

== ENCOUNTER 2023-09-06 03:09 | Emergency (ER) | payer MEDICARE, MEDICAID ==
[~2023-09-06] VITALS: Ht 175.3 cm; Wt 121.8 kg
[~2023-09-06 03:09] MED LIST changes: +ATHLETE'S FOOT1% TP; +DIFLUCAN200 MG PO; +IPRATROPIUM BROM3 M1 IH; +JARDIANCE10 PO; +PREDNISONE50 MG PO
[2023-09-06 03:13] VITALS: BP 149/82; TEMP 98.5
[2023-09-06] MEDS ORDERED: DIFLUCAN200 MG PO (03:30)
[2023-09-06 03:38] VITALS: PULSE 74
== END 2023-09-06 03:41 | disposition home or self-care (01) ==
LOC: COL.ER 03:09
DX: R21 Rash and other nonspecific skin eruption (principal); F22 Delusional disorders